=== PATIENT | male | born 1960 | race Caucasian/White ===

== ENCOUNTER 2017-01-17 13:21 | Emergency (ER) | payer OTHER ==
[~2017-01-17] VITALS: Ht 177.8 cm; Wt 106.6 kg
[~2017-01-17 13:21] MED LIST: BISOPROLOL FUMA1 TA4 PO; LISINOPRIL10 MG PO; MEDROL 4MG. DOSE4 MG PO; OMEPRAZOLE40 MG PO
[2017-01-17] MEDS ORDERED: TESSALON PERLE100 M1 PO (13:37)
[2017-01-17] MEDS ORDERED: ZITHROMAX Z-PA250 M2 PO (13:37)
--- NOTE | 2017-01-17 13:38 | [facility]gent Treatment Center Report ---
History of Present Issue Date/Time Seen by Provider 01/17/17 1332 Visit Reason Pt arrived:Walked Presenting Problem:PT C/O OF COUGH, HEAD AND CHEST CONGESTION, AND SINUS PRESSURE Location if Accident: Onset of symptoms date/time:01/15/1710/25/899 or onset unknown for: Have you (or family members/close friends) recently traveled outside the [place]? N If Yes, where/when: Have you had exposure to infectious disease within the past month? TB? Other? Specify: Source patient Exam Limitations no limitations Comment 56-year-old male presents for cough, nasal and chest congestion, sore throat and body aches for 2-3 days. ALLERGIES Coded Allergies: No Known Allergies (02/25/16) Home Medications Active Scripts Methylprednisolone (Medrol Dose Jhonathan) 4 MG PO UD #1 JHONATHAN Prov: 08/09/16 Reported Medications Lisinopril 10 MG PO DAILY #30 BISOPROLOL FUMARATE/HCTZ (Bisoprolol-Hctz 10-6.25 MG Tab) 1 TAB PO BID #60 Omeprazole (Omeprazole 40MG) 40 MG PO DAILY #30 History Medical History General CAD? No Angina: Yes [place]: No Hypertension? Yes Hyperlipidemia? No CHF? No DVT? No PE? No COPD? No Asthma? No Anemia? No GERD? No Gastric ulcers? No GI Bleed? No Hernia? Yes Thyroid Problems? No Hypothyroidism? No CVA? No Seizures? No Diabetes? No Renal Insuffiency? No UTI? No Stones? Yes BPH? No GB Disease: No Nephritic Syndrome? No Asplenia? No Hepatitis? No Sickle Cell Disease? No Arthritis? No Migraines? No Cataracts? No Glaucoma? No MRSA? No HIV? No TB? No Anxiety? No Depression? No Cancer? No Immunization HX Ped.Immunizations UTD No DT/Tetanus [id number] Surgical Hx Previous Surgery?Y WISDOM TEETH Social History Smoking Hx Smoker: Current Every Day Smoker Tobacco: Yes Type Cigarettes Packs/day 1 1/2 - 2 Packs Alcohol Alcohol: No Review of Systems All Other Systems Reviewed and Negative ENT see HPI, nose congestion, throat pain. Respiratory see HPI, cough Physical Exam Vital Signs Vital Signs Date Time Temp Pulse Resp B/P Pulse O2 O2 Flow FiO2 Ox Delivery Rate 01/17 1328 98.0 72 20 142/97 96 - WBC >12,000 or <4,000 or 10% bands? 2 or more SIRS Criteria Met? B/P:142/97 MAP:112 Creatinine >2.0? UA output<0.5ml/kg/hr for 2 hrs? Platelet count >100,000? Lactate >2.0mmol/1? INR >1.2 or PTT > than 60 sec? Evidence of Organ Dysfunction? Provider documented clinical suspician of infection? Sepsis Criteria Count: 1 Sepsis Risk: General Appearance normal appearance, no apparent distress Eye Exam - bilateral eye normal exam, bilateral eye PERRL, bilateral eye EOMI Ear, Nose, Throat sinus pain/drainage, nasal congestion, tonsillar exudate, tonsillar swelling Neck normal inspection, full range of motion Respiratory Status Yes: trachea midline, chest symmetrical, non tender chest. No: respiratory distress. Lung Sounds posterior: wheezing. bilateral: lungs clear. left: wheezing. right: lungs clear. Cardiovascular normal exam, regular rate/rhythm Neurologic alert, normal exam, oriented x 3 Medical Decision Making LABS/Meds/Orders Pt receiving controlled substance in ED? No Departure Departure Time of Disposition 1335 Disposition DC Home or Self Care(routine) Clinical Impression Primary Impression: Strep throat Condition STABLE Referrals Babatunde RUSHING,Андрей (Family) Patient Instructions DI for Strep Throat, Strep Throat Additional Instructions Contact precautions discussed with patient Tylenol or ibuprofen as needed for pain or fever Antibiotics as ordered Follow-up with PCP this week if no improvement Return or be seen in the ER if symptoms worsen or do not improve Discharge Counseling Counseled pt/family regarding diagnosis, medications/RX, home care, follow up needs Prescriptions Current Visit Scripts Azithromycin (Zithromax) 250 MG PO DAILY 5 Days USE DIRECTED. Benzonatate (Tessalon Perle) 100 MG PO BIDP PRN COUGH 3 Days at 1333
[2017-01-17 13:39] VITALS: BP 142/97
--- OUTSIDE RECORDS SUMMARY | 2017-01-22 02:06 | External Medical Summary Rpt | CCD ---
Author Author MORRIS Address Unknown Phone [email or web address] Purpose Continuity of Care Document - through 2016
--- OUTSIDE RECORDS SUMMARY | 2017-01-22 02:06 | External Medical Summary Rpt | CCD ---
Author Author MORRIS Address Unknown Phone Purpose Continuity of Care Document - through 2016
--- OUTSIDE RECORDS SUMMARY | 2017-01-22 02:07 | External Medical Summary Rpt ---
Author Author MORRIS Gutierrez, [employer] Address Unknown Phone Unavailable
--- OUTSIDE RECORDS SUMMARY | 2017-01-22 02:07 | External Medical Summary Rpt | CCD ---
Demographics Preferred Language Kazakh Marital Status Unknown Episcopal Affiliation Unknown Race Unknown Ethnic Group Unknown Author Author , MORRIS CACERES Address Unknown Phone Immunization No patient found.
--- OUTSIDE RECORDS SUMMARY | 2017-01-22 02:07 | External Medical Summary Rpt | CCD ---
Demographics Preferred Language Macedonian Marital Status Unknown Shinto Affiliation Unknown Race Unknown Ethnic Group Unknown Author Author , MORRIS CACERES Address Unknown Phone Immunization No patient found.
== END 2017-01-17 13:40 | disposition home or self-care (01) ==
LOC: UTC 13:21
DX: J02.0 Streptococcal pharyngitis (principal); I10 Essential (primary) hypertension; F17.210 Nicotine dependence, cigarettes, uncomplicated

== ENCOUNTER → 2017-02-02 | Outpatient (CLI) | payer OTHER ==
[~2017-02-02] MED LIST changes: +TESSALON PERLE100 M1 PO; +ZITHROMAX Z-PA250 M2 PO
[2017-02-02 10:18] LABS: LYMPH # 2.5 K/mm3 (0.7-4.5); LYMPH % 30.3 % (10-50)
[2017-02-02 11:36] LABS: BUN 9 mg/dL (7-18)
[2017-02-02 11:37] LABS: GFR (ESTIMATED) 87 ML/MIN (>60)
[2017-02-02 12:00] LABS: HEMOGLOBIN 16.2 g/dL (14.1-18.0)
[2017-02-03 09:37] LABS: Testosterone 269 ng/dL (264-916); Vitamin B12 374 pg/mL (211-946)
== END ==
LOC: LAB 09:48
PROVIDERS: Internal Medicine Adolescent Medicine
DX: R53.83 Other fatigue (principal); R53.81 Other malaise; E78.5 Hyperlipidemia, unspecified